=== PATIENT | male | born 1995 | race Caucasian/White ===

== ENCOUNTER 2022-09-22 08:03 | Emergency (ER) | payer OTHER ==
[~2022-09-22] VITALS: Ht 177.8 cm; Wt 90.7 kg
[2022-09-22 08:05] VITALS: BP_SYST 126
--- NOTE | 2022-09-22 08:05 | NUR ---
BROUGHT BACK TO BED #4 AND TRIAGED. REPORT GIVEN TO ESTRELLA
[2022-09-22] MEDS ORDERED: BACITRACIN 1 GM OINT TP ONE (08:15)
[2022-09-22] MEDS ORDERED: LIDOCAINE 1% 10 MG/ML, 20 ML MDV INJ ONE (08:15)
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
[2022-09-22] MEDS ORDERED: IBUPROFEN 400 MG TABLET ONE (08:35)
--- NOTE | 2022-09-22 08:35 | NUR ---
ER at bedside examining patient.
--- NOTE | 2022-09-22 08:36 | NUR ---
DR LONDON BEDSIDE ADMINISTERING LIDOCAINE AND SUTURES TO LEFT INDEX FINGER
[2022-09-22] MEDS ORDERED: IBUPROFEN 400 MG TABLET PO ONE (08:45)
[2022-09-22] MEDS ORDERED: TRAM50TA2 PO (09:02)
[2022-09-22] MEDS ORDERED: IBUP-1971 PO (09:02)
[2022-09-22] MEDS ORDERED: KEF250/5 GT (09:02)
--- NOTE | 2022-09-22 09:17 | NUR ---
Patient given written and verbal discharge instructions and verbalizes understanding. ER MD DR LONDON discussed with patient the results and treatment provided. Patient in stable condition. ID arm band removed. Rx of motrin, keflex, ultram given. Patient educated on pain management and to follow up with PMD. Pain Scale 8/10. Opportunity for questions provided and answered. Medication side effect fact sheet provided.
[2022-09-22 09:19] VITALS: BP_SYST 125
== END 2022-09-22 09:17 | disposition home or self-care (01) ==
LOC: SED 08:03
DX: S61.311A Laceration without foreign body of left index finger with damage to nail, initial encounter (principal); Z79.899 Other long term (current) drug therapy; W23.1XXA Caught, crushed, jammed, or pinched between stationary objects, initial encounter; Y93.89 Activity, other specified; Y92.89 Other specified places as the place of occurrence of the external cause; Y99.8 Other external cause status
CPT/HCPCS: 99283; 73140; 12002; J2001